=== PATIENT | male | born 1960 | race Caucasian/White ===

== ENCOUNTER → 2024-07-29 | Outpatient (CLI) | payer MEDICAID, SELFPAY | END | disposition home or self-care (01) | LOC: SMRI 15:38 | PROVIDERS: PCP Nurse Practitioner Family; Referring Provider Nurse Practitioner Family; Visit Provider Nurse Practitioner Family | DX: Z53.29 Procedure and treatment not carried out because of patient's decision for other reasons (principal) ==

== ENCOUNTER → 2024-08-08 | Outpatient (CLI) | payer MEDICAID, SELFPAY ==
--- NOTE | 2024-08-08 16:26 | XR_ITS ---
Examination: Ultrasound soft tissue extremity left arm TECHNIQUE: Multiple high resolution grayscale sonographic images soft tissue posterior left midarm, elbow Exam date and time: August 08, 2024 1664 hours INDICATIONS: Elbow pain 4 months FINDINGS: Soft tissue mass posterior mid arm elbow measuring 8 x 3.4 cm with hypervascularity IMPRESSION: Large soft tissue mass left posterior mid arm and elbow, differential would include soft tissue tumor Recommend MRI elbow left forearm pre and post contrast follow-up
== END | disposition home or self-care (01) ==
LOC: CDIM 16:22
PROVIDERS: Referring Provider Nurse Practitioner Family; Visit Provider Nurse Practitioner Family
DX: R22.32 Localized swelling, mass and lump, left upper limb (principal)
CPT/HCPCS: 76882

== ENCOUNTER → 2024-09-25 | Outpatient (CLI) | payer MEDICAID, SELFPAY ==
[2024-09-23 10:20] VITALS: BMI 19.5
[2024-09-25 07:30] LABS: Basophils # (Auto) 0.1 Thou/mm3 (0.0-0.2); Basophils % (Auto) 1 % (0-2.5); Eosinophils # (Auto) 0.4 Thou/mm3 (0.0-0.5); Eosinophils % (Auto) 5 % (0-10); Hemoglobin 14.9 g/dL (13.5-16.0); Immature Granulocytes % (Auto) 0 % (0-0); Immature Granulocytes Auto 0.01 Thou/mm3 (0.00-0.00); Lymphocytes # (Auto) 1.8 Thou/mm3 (1.0-4.8); Lymphocytes % (Auto) 21 % (10-50); Mean Corpuscular HGB Conc 34.7 g/dl (31.0-37.0); Mean Corpuscular Volume 89 fL (80-100); Monocytes # (Auto) 0.9 Thou/mm3 (0.0-0.8); Monocytes % (Auto) 10 % (0-12); Neutrophils # (Auto) 5.4 Thou/mm3 (1.8-7.7); Neutrophils % (Auto) 64 % (37-80); Nucleated Red Blood Cell % 0 /100 WBC (0); Platelet Count 274 Thou/mm3 (140-440); RDW Standard Deviation 43.3 fL (35.1-43.9); Red Blood Count 4.81 Miln/mm3 (4.50-5.90); White Blood Count 8.5 Thou/mm3 (3.8-10.6)
[2024-09-25 07:36] LABS: Blood Urea Nitrogen 10 mg/dL (9-23); Creatinine (Component) 0.8 mg/dL (0.6-1.3); eGFR > 60 See Note
[2024-09-25 07:55] LABS: INR 0.9 (0.9-1.3); Partial Thromboplastin Time 30.4 Seconds (22.0-36.0); Prothrombin Time 10.4 Seconds (9.0-12.2)
[2024-09-25 08:38] VITALS: BP 151/82; PULSE 93; RESP 20; TEMP 37.1; O2SAT 95
--- NOTE | 2024-09-25 10:45 | PC.NURSE ---
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 at 1030, patient waiting for ct department to be available for procedure, patient stated he wants to go home, Charge nurse Natalya notified and talked to patient and rescheduled patient for another date. IV taken out, patient changed to own clothe and walked out with caregiver Shannan.
== END | disposition home or self-care (01) ==
PROVIDERS: Radiology Diagnostic Radiology; PCP Nurse Practitioner Family; Referring Provider Nurse Practitioner Family; Visit Provider Nurse Practitioner Family
DX: Z53.29 Procedure and treatment not carried out because of patient's decision for other reasons (principal); Z01.812 Encounter for preprocedural laboratory examination
CPT/HCPCS: 36415; 82565; 84520; 85025; 85610; 85730

== ENCOUNTER 2024-10-15 13:55 | Inpatient (IN) | payer MEDICARE, MEDICAID, SELFPAY ==
[2024-10-14 18:02] LABS: Basophils # (Auto) 0.1 Thou/mm3 (0.0-0.2); Basophils % (Auto) 1 % (0-2.5); Eosinophils # (Auto) 0.2 Thou/mm3 (0.0-0.5); Eosinophils % (Auto) 2 % (0-10); Hematocrit 41.7 % (41.0-53.0); Hemoglobin 13.9 g/dL (13.5-16.0); Immature Granulocytes % (Auto) 0 % (0-0); Immature Granulocytes Auto 0.03 Thou/mm3 (0.00-0.00); Lymphocytes # (Auto) 1.5 Thou/mm3 (1.0-4.8); Lymphocytes % (Auto) 15 % (10-50); Mean Corpuscular HGB Conc 33.3 g/dl (31.0-37.0); Mean Corpuscular Volume 90 fL (80-100); Monocytes # (Auto) 0.8 Thou/mm3 (0.0-0.8); Monocytes % (Auto) 8 % (0-12); Neutrophils # (Auto) 7.7 Thou/mm3 (1.8-7.7); Neutrophils % (Auto) 74 % (37-80); Nucleated Red Blood Cell % 0 /100 WBC (0); Platelet Count 505 Thou/mm3 (140-440); RDW Standard Deviation 43.8 fL (35.1-43.9); Red Blood Count 4.64 Miln/mm3 (4.50-5.90); White Blood Count 10.4 Thou/mm3 (3.8-10.6)
[2024-10-14 18:09] LABS: Partial Thromboplastin Time 30.4 Seconds (22.0-36.0); Prothrombin Time 10.9 Seconds (9.0-12.2)
[2024-10-14 18:22] LABS: Blood Urea Nitrogen 13 mg/dL (9-23); Creatinine (Component) 0.7 mg/dL (0.6-1.3); eGFR > 60 See Note
[2024-10-15] VITALS (20 sets, daily range): BP systolic 105–151; BP diastolic 55–102; PULSE 60–106; RESP 10–95; TEMP 36.6–37.2; O2SAT 90–98; BMI 18.9
--- NOTE | 2024-10-15 | XR_ITS ---
Examination: IR fluoroscopically guided right chest tube insertion AP chest 2 views Fluoroscopy Exam date and time: October 15, 2024 1302 hours INDICATIONS: Pneumothorax post biopsy of pulmonary mass in the right upper lobe today TECHNIQUE AND FINDINGS: Informed consent provided. Timeout performed. Skin prepped over the lateral lower chest and sterile drape applied hand hygiene 1% lidocaine administered for local anesthesia. Utilizing fluoroscopic guidance 9 Romansh Heimlich chest tube placed in the right hemithorax Fluoroscopy 0.8 minute radiation dose 2.10 milligray 2 spot fluoroscopic chest films IMPRESSION: Successful fluoroscopically guided right chest tube insertion
--- NOTE | 2024-10-15 09:00 | XR_ITS ---
Examination: CT-guided percutaneous biopsy pulmonary mass right upper lobe CT chest without intravenous contrast INDICATIONS: Spiculated pulmonary mass 25 mm right upper lobe on CT chest July 18, 2024, smoking history 30 years Date and time of procedure: October 15, 2024 0959 hours Informed consent provided. A timeout was completed verifying correct patient, procedure, site and positioning. Technique: Axial 3 mm sections were obtained for localization of the pulmonary mass right upper lobe Appropriate area is marked. The patient's site was prepped and draped in sterile fashion Maximal sterile barrier technique utilized, including hand hygiene Local anesthesia was obtained with 1% lidocaine. Low dose protocols were performed. One or more of the following dose reduction techniques were used; automated exposure control, adjustment of the mA and/or KV according to patient size, use of iterative reconstruction technique. Utilizing CT fluoroscopic guidance 3 core biopsies obtained of the pulmonary mass right upper lobe Patient appears in stable condition during this procedure. At completion of the procedure, the patient is in satisfactory condition. Estimated blood loss 0 cc Complete pathology report to follow. Impression: Successful CT-guided percutaneous biopsy pulmonary mass right upper lobe
[2024-10-15] MEDS: fentaNYL CIT INJ 50 mCg/ML AMP 2ML 75 MCG IVP (10:15)
--- NOTE | 2024-10-15 10:30 | XR_ITS ---
Examination: AP chest single view TECHNIQUE: AP portable chest upright single view INDICATIONS: Post lung biopsy today. FINDINGS: Lateral inferior right pneumothorax, estimated 30% No shift of the heart or mediastinum IMPRESSION: 30% right pneumothorax
--- NOTE | 2024-10-15 11:30 | XR_ITS ---
Examination: AP chest single view Technique one AP upright portable chest single view INDICATIONS: Post lung biopsy today. FINDINGS: Right lateral inferior pneumothorax, estimated 35% Pulmonary mass right upper lobe again noted IMPRESSION: Right pneumothorax estimated 35% PLAN: Continue follow-up x-rays
--- NOTE | 2024-10-15 12:30 | XR_ITS ---
Examination: AP chest single view Technique one AP portable upright chest single view Exam date and time: October 15, 2024 1236 hours INDICATIONS: Post lung biopsy today. FINDINGS: 40% right pneumothorax Pulmonary mass right upper lobe again noted IMPRESSION: 40% right pneumothorax
[2024-10-15] MEDS: fentaNYL CIT INJ 50 mCg/ML AMP 2ML 150 MCG IVP (13:10)
[2024-10-15] MEDS: LIDOCAINE INJ PF 1% 30 ML VIAL 10 ML EPID (13:12)
--- NOTE | 2024-10-15 15:00 | XR_ITS ---
Examination: AP chest single view Technique one AP portable upright chest single view Exam date and time: October 15, 2024 1807 hrs. Indications: Pneumothorax today on the right post lung biopsy, post chest tube placement Findings: Chest tube satisfactory position Full expansion right lung Pulmonary mass is again depicted Impression: Right chest tube satisfactory position with full expansion right lung
--- NOTE | 2024-10-15 15:19 | PC.NURSE ---
Report given to NNAMDI Wisdom waiting on registration to bring me a packet before i can take pateint to his new room
--- NOTE | 2024-10-15 15:55 | ESHP_ITS ---
Documentation for date of: 10/15/24 [facility] History of Present Illness History of present illness: The patient is a 63-year-old male with a past medical history of hypertension and solitary pulmonary nodule who presented to [facility] on 10/15/2024 as an outpatient for lung biopsy. Essentially, the patient about 3 months ago started having some pain in his left arm as well as firm swelling. As he works as a visitor services coordinator, he initially thought it was some swelling from a bite or sting but as the pain worsened, he presented to his PCP and had an x-ray done which showed some suspicion for metastasis. Consequently, in the last 3 months he has done multiple imaging including having to go to [facility] as well as a CAT scan done in July which showed a 25 mm spiculated pulmonary mass in the right upper lobe most consistent with lung carcinoma. Today, the patient presented here for lung biopsy which was done by IR. Shortly after the procedure was done, the patient started to complain of severe pain in the right side of the chest just above the biopsy site. A chest x-ray was done which showed 30% right pneumothorax initially which continued to build to 40%. The patient continues to have severe pain in his right chest and a chest tube was inserted. He has been admitted for further management. Recent labs prior to procedure: WBC 10.4 Hgb 13.9 PLT 505 with normal BUN and creatinine. PMHx-hypertension, solitary pulmonary nodule PSHx-nil Social history-smokes tobacco and drinks alcohol Home meds-Cayuga 10 mg, gabapentin, morphine, lisinopril Review of Systems Review of Systems Narrative Review of Systems: GENERAL: Denies fevers/chills or diaphoresis. HEENT: Denies headache or visual/hearing changes. Denies nasal discharge. NEURO: Denies unusual weakness or difficulty speaking. CARDIO: Denies chest pain or palpitations. PULM: Pain on the right side of the chest GI: Denies abdominal pain, N/V/C/D/reflux/gas, bright red blood per rectum or melena. Reports having BMs. URO: Denies burning/itching/pain/urinary changes. MSK/EXT/SKIN:Pain in the left arm PSYCH: Cooperative, pleasant mood & affect. 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 Eyes open, symmetrical, & clear CARDIO: No chest pain on palpation. Heart RRR, no obvious murmurs PULM: No noted coughing/dyspnea. Pain to palpation in the right side of the chest. Chest tube in-situ GI: Abdomen soft, nondistended, no pain on palpation. 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 SKIN/MSK/EXT: Firm swelling in the left arm, tender to touch Results: Labs 10/16/24 05:18 10/16/24 05:18 Labs: Short CBC 10/14/24 Range/Units 17:18 WBC 10.4 (3.8-10.6) Thou/mm3 Hgb 13.9 (13.5-16.0) g/dL Hct 41.7 (41.0-53.0) % Plt Count 505 H D (140-440) Thou/mm3 BMP 10/14/24 17:18 BUN 13 Creatinine 0.7 Quality Measures Quality Measures VTE prophylaxis Medications Home Medications and Allergies Home Medications ?Medication ?Instructions ?Recorded ?Confirmed ?Type albuterol 90 mcg/actuation aerosol 90 mcg inhalation D AILY 09/25/24 10/15/24 History inhaler gabapentin 300 mg tablet 300 mg PO TID 09/25/2410/15 History hydrocodone 10 mg-acetaminophen 1 tab PO Q6H PRN Pain 09/25/24 10/15/24 History 325 mg tablet lisinopril 20 mg tablet 20 mg PO QDAY 09/25/2410/15 History morphine 15 mg tablet,extended 15 mg PO Q12H 09/25/24 10/15/24 History release nitroglycerin 0.4 mg sublingual 0.4 mg buccal Q5MIN NH N Chest Pain 09/25/24 10/15/24 History tablet aspirin 81 mg tablet,delayed 81 mg PO QDAY 10/15/24 History release (Adult Low Dose Aspirin) Held on 10/15/24. Instructions: Resume on 10/17/24. Per Ronnie Layton. Hold until 10/17/24 Allergies Allergy/AdvReac Type Severity Reaction Status Date / Time No Known Allergies Allergy Verified 09/23/24 10:18 Visit Medications Acetaminophen (Acetaminophen 325 Mg Tablet) 650 mg PO Q6H PRN PRN Reason: Pain 1-3 or Fever >100.1 Stop: 11/14/24 13:54 Hydrocodone Bitart/Acetaminophen (Hydrocodone/Apap 10/325 Tab) 1 tab PO Q6HR PRN PRN Reason: PAIN SCALE 4-6 (Moderate Stop: 10/20/24 13:54 Gabapentin (Gabapentin 300 Mg Capsule) 300 mg PO TID [facility] Stop: 11/14/24 21:59 Heparin Sodium (Porcine) (Heparin Sod Inj 5000 Unit/Ml Vial) 5,000 unit SC Q12HR RAJANI Stop: 10/29/24 20:59 Sodium Chloride (Ns) 500 mls @ 20 mls/hr IV .Q24H RAJANI Stop: 11/14/24 09:14 Last Admin: 10/15/24 10:12 Dose: Not Given Morphine Sulfate (Morphine Sulf 15 Mg Tabcr) 15 mg PO Q12H RAJANI; Protocol Stop: 10/20/24 19:59 Morphine Sulfate (Morphine Sulf Inj 10 Mg/Ml Vial) 2 mg IVP Q4HR PRN PRN Reason: BREAKTHROUGH PAIN (SEVERE) Stop: 10/20/24 14:34 Ondansetron HCl (Ondansetron Inj 2 Mg/Ml Inj 2 Ml) 4 mg IV Q6H PRN; Protocol PRN Reason: NAUSEA OR VOMITING Stop: 11/14/24 13:54 Sennosides (Senna Tablet) 1 tab PO QDAY RAJANI; Protocol Stop: 11/15/24 08:59 Discontinued Medications Fentanyl Citrate (Fentanyl Cit Inj 50 Mcg/Ml Amp 2ml) 75 mcg IVP X1 ONE Stop: 10/15/24 10:13 Last Admin: 10/15/24 10:15 Dose: 75 mcg Fentanyl Citrate (Fentanyl Cit Inj 50 Mcg/Ml Amp 2ml) 150 mcg IVP X1 ONE Stop: 10/15/24 13:11 Last Admin: 10/15/24 13:10 Dose: 150 mcg Lidocaine HCl (Lidocaine Inj Pf 1% 30 Ml Vial) 10 ml EPID X1 ONE Stop: 10/15/24 13:11 Last Admin: 10/15/24 13:12 Dose: 10 ml Morphine Sulfate (Morphine Sulf Inj 10 Mg/Ml Vial) 4 mg IVP X1 ONE Stop: 10/15/24 14:11 Assessment & Plan Assessment Summary: The patient is a 63-year-old male with a past medical history of hypertension and solitary pulmonary nodule who presented for an outpatient lung biopsy and developed a pneumothorax. # Acute hypoxic respiratory failure #Right-sided pneumothorax #s/p lung biopsy #Solitary pulmonary nodule The patient first developed pain and swelling in his left arm about 3 months ago after which she had x-ray done that showed some suspicion. He had multiple imaging including a CAT scan which was done and showed a 25 mm spiculated pulmonary mass in the right upper lobe most consistent with lung carcinoma. Today, the patient presented for lung biopsy which was done by IR and subsequently developed a right-sided pneumothorax. A chest tube was inserted and the patient is admitted for further management. Plan: -Admit to telemetry -Optimize pain management-Cayuga, morphine and breakthrough pain -Continue to monitor vital signs #History of hypertension Patient has a history of hypertension and is on lisinopril 20 mg daily. Blood pressure on admission currently normal. Plan: -Hold antihypertensives for now Health maintenance: Dispo: Tele Diet: Cardiac DVT: Lovenox Cuevas: None Lines: Peripheral PT: Not ordered Code: Full Case was discussed with Dr Day PGY-2 and attending physician, Dr Elio Burr MD PGY-1 Disclaimer: This note was dictated by speech recognition. Minor errors in clinical specialist vascular may be present due to voice recognition software. Attending Provider Attestation/Addendum I reviewed labs, imaging, EKG, home medications and prior available records. Face to face evaluation was performed by me. I have personally examined the patient and discussed assessment and plan with the IM team. I reviewed the resident note and agree with the plan with exceptions as below. Lung mass status postbiopsy Acute hypoxic respiratory failure Acute pneumothorax of right lung Right chest pain at rest Chronic pain on oral opiates Tobacco use Status post chest tube insertion Continue oxygen as needed Monitor respiratory status Repeat chest x-ray in the next a.m. Management of pain as needed: Resume home p.o. morphine. Add IV morphine as needed for breakthrough pain Counseled the patient regarding the importance of smoking cessation
--- NOTE | 2024-10-15 16:08 | PC.NURSE ---
informed pt of his diet being cardiac. pt became agitated stating he is healthy and eats whatever he likes. explained to pt this was a doctor's order but if he would like this nurse would call the md and he could talk to them himself pt stated I will eat what I want if not I will rip these tubes out explained to this nurse had already agreed to call md so he could talk to them. pt stating I don't need to talk to anyone tell him what I said .
--- NOTE | 2024-10-15 16:08 | PC.NURSE ---
called dr. cano to explain pt diet situation. to change diet order
[2024-10-15] MEDS: NICOTINE PATCH 21 MG/24 HR PATCH.TD24 TOP (17:31)
--- NOTE | 2024-10-15 17:50 | PC.NURSE ---
pt refusing to answered admission questions pt stating this has nothing to do with my lung , attempted to explain to pt this standard questions asked to all admissions in order to cover all needs. pt refusing to answer questions Myriam never been sick in my life I don't want to answer no questions . was allowed to do a head to toe assessment found 2 bottles of prescription labeled medication. per pt it's for my cancer treatment if I don't take my medications it will turn ugly, I need my medications scheduled at 8 and 2 . explained to pt that those medications were already ordered and would be provided to him. explained also pt medications were either sent home or sent to pharmacy to a safe. pt states I am not a drug addict, I am 63 years old I will take my own medications and they will stay next to me . explained to pt would notify md of pt taking his own medications.
--- NOTE | 2024-10-15 17:56 | PC.NURSE ---
made aware pt has 2 prescription bottles one of them labeled as gabapentin and another labeled has lortab. pt is refusing to have medications taken to pharmacy for safety purposes even after informing him we have his home medications reconciled and md restarted those medications.
[2024-10-15] MEDS: Morphine Sulf 15 MG TABCR PO (19:44)
[2024-10-15] MEDS: HYDROcodone/APAP 10/325 TAB PO (19:48)
[2024-10-15] MEDS: GABAPENTIN 300 MG CAPSULE PO (21:02)
[2024-10-16] VITALS: BP 131/88; PULSE 81; PULSE 84; RESP 21; TEMP 36.2; O2SAT 96
[2024-10-16] MEDS: HYDROcodone/APAP 10/325 TAB PO ×3 (01:45→14:09)
[2024-10-16 04:00] VITALS: BP 121/73; PULSE 82; PULSE 83; RESP 18; TEMP 36.6; O2SAT 94
[2024-10-16 05:39] LABS: Basophils # (Auto) 0.1 Thou/mm3 (0.0-0.2); Basophils % (Auto) 1 % (0-2.5); Eosinophils # (Auto) 0.3 Thou/mm3 (0.0-0.5); Eosinophils % (Auto) 3 % (0-10); Hematocrit 37.5 % (41.0-53.0); Hemoglobin 12.8 g/dL (13.5-16.0); Immature Granulocytes % (Auto) 1 % (0-0); Immature Granulocytes Auto 0.04 Thou/mm3 (0.00-0.00); Lymphocytes # (Auto) 1.9 Thou/mm3 (1.0-4.8); Lymphocytes % (Auto) 23 % (10-50); Mean Corpuscular HGB Conc 34.1 g/dl (31.0-37.0); Mean Corpuscular Volume 88 fL (80-100); Monocytes # (Auto) 0.8 Thou/mm3 (0.0-0.8); Monocytes % (Auto) 9 % (0-12); Neutrophils # (Auto) 5.3 Thou/mm3 (1.8-7.7); Neutrophils % (Auto) 63 % (37-80); Nucleated Red Blood Cell % 0 /100 WBC (0); Platelet Count 413 Thou/mm3 (140-440); RDW Standard Deviation 43.2 fL (35.1-43.9); Red Blood Count 4.26 Miln/mm3 (4.50-5.90); White Blood Count 8.5 Thou/mm3 (3.8-10.6)
[2024-10-16] MEDS: GABAPENTIN 300 MG CAPSULE PO ×2 (06:00→13:10)
[2024-10-16 06:15] LABS: Alanine Aminotransferase 14 U/L (10-49); Albumin, Serum 3.8 gm/dL (3.4-4.8); Albumin/Globulin Ratio 1.3 (1.2-2.2); Alkaline Phosphatase 89 U/L (46-116); Anion Gap 4 (7-16); Aspartate Amino Transferase 13 U/L (0-34); BUN/Creatinine Ratio 16 Ratio (12-20); Bilirubin,Total 0.2 mg/dL (0.3-1.2); Blood Urea Nitrogen 11 mg/dL (9-23); Calcium 9.6 mg/dL (8.3-10.6); Calcium (Corrected) 9.8 mg/dL (8.5-10.1); Carbon Dioxide 27.1 mMol/L (20.0-31.0); Chloride 103 mMol/L (98-107); Creatinine (Component) 0.7 mg/dL (0.6-1.3); Estimated Creatinine Clearance 82.8 mL/min (>60); Glucose 102 mg/dL (74-106); Magnesium 1.8 mg/dL (1.6-2.6); Osmolality,Calculated 267 (275-295); Phosphorous 3.9 mg/dL (2.4-5.1); Potassium 4.3 mMol/L (3.4-5.1); Sodium 134 mMol/L (136-145); Thyroid Stimulating Hormone 0.76 uIU/mL (0.55-4.78); Total Protein 6.8 gm/dL (5.7-8.2); eGFR > 60 See Note
[2024-10-16 07:30] VITALS: PULSE 89; RESP 19; RESP 92
[2024-10-16 08:00] VITALS: BP 126/80; PULSE 100; PULSE 97; RESP 18; TEMP 37.3; O2SAT 92
[2024-10-16] MEDS: Morphine Sulf 15 MG TABCR PO (08:02)
[2024-10-16] MEDS: NICOTINE PATCH 21 MG/24 HR PATCH.TD24 TOP (08:03)
[2024-10-16] MEDS: SENNA TABLET 1 TAB PO (08:03)
--- NOTE | 2024-10-16 08:41 | XR_ITS ---
Examination: AP chest single view Technique one AP portable semiupright chest single view Exam date and time: October 16, 2024 0855 hours Comparison October 15, 2024 INDICATIONS: History right pneumothorax especially post lung biopsy, post chest tube placement FINDINGS: Chest tube on the right satisfactory position Full expansion right lung Pulmonary masses again noted IMPRESSION: Right chest tube satisfactory position with full expansion right lung
[2024-10-16 10:46] VITALS: BMI 19.0
[2024-10-16 12:00] VITALS: BP 99/71; PULSE 90; PULSE 98; RESP 18; TEMP 36.9; O2SAT 92
--- NOTE | 2024-10-16 12:30 | XR_ITS ---
Examination: AP chest single view TECHNIQUE: AP portable upright chest single view Exam date and time: October 16, 2024 1229 hours INDICATIONS: History right pneumothorax post right chest tube placement, chest tube clamped today at 12:30 PM FINDINGS: Full expansion right lung Right chest tube satisfactory position IMPRESSION: Full expansion right lung
[2024-10-16] MEDS: MORPHINE SULF INJ 10 MG/ML VIAL 2 MG IVP (13:09)
--- NOTE | 2024-10-16 15:07 | ESDS_ITS ---
Planned Discharge Date 10/16/24 DS: Providers Provider Date of admission: 10/15/24 13:55 Primary care physician: DE Fernandez Admitting Provider: Michel Burr MD Attending Provider on Admission: Stephon Ballard MD Attending Provider on DC: Michel Burr MD Discharging Provider: Michel Burr MD DS: Diagnosis Problem List Completed Was Problem List Reviewed/Reconciled?: Yes Hospital Course Hospital Course Hospital course: The patient is a 63-year-old male with a past medical history of hypertension and solitary pulmonary nodule who presented on 10/15/2024 as an outpatient for lung biopsy. He had initially done a CAT scan in July which showed a 25 mm spiculated pulmonary mass in the right upper lobe, most consistent with lung carcinoma. The biopsy was done as an IR procedure but shortly after, the patient was co mplaining of severe chest pain. He was given fentanyl, however chest pain persisted and a chest x-ray was done which showed enlarging pneumothorax. Patient had a chest tube inserted and was admitted for further management. Today, the patient reports that he has no pain anymore, vitals are stable and repeat chest x-ray was done which showed resolution of the pneumothorax with full expansion of the right lung. After clamping chest tube and repeat chest x-ray, the tube was removed. The patient continues to remain clinically and hemodynamically stable and is cleared for discharge. He will follow-up with his PCP within 1 week of discharge for pathology results. #Acute hypoxic respiratory failure #Right-sided pneumothorax #s/p lung biopsy #Solitary pulmonary nodule, possible lung carcinoma #History of hypertension Case was discussed with Dr Rachel PGY-2 and attending physician, Dr Elio Burr MD PGY-1 Disclaimer: This note was dictated by speech recognition. Minor errors in transcription typist may be present due to voice recognition software. Time Spent with Patient Time attestation: Total time spent providing and/or coordinating discharge services: Exam Vital Signs Temp Pulse Resp BP Pulse Ox O2 Del Method O2 Flow Rate 98.4 F 98 18 99/71 92 L Room Air 4 10/16/24 12:00 10/16/24 12:00 10/16/24 12:00 10/16/24 12:00 10/16/24 12:00 10/16/24 12:00 10/16/24 04:00 Discharge Plan Plan Patient Disposition: HOME (Self Care) Prescriptions/Referrals Prescriptions/Med Rec: Continued nitroglycerin 0.4 mg Tablet, Sublingual 0.4 mg BUCCAL Q5MIN PRN (Reason: Chest Pain) hydrocodone-acetaminophen 10-325 mg Tablet 1 tab PO Q6H PRN (Reason: Pain) morphine 15 mg Tablet Extended Release 15 mg PO Q12H albuterol 90 mcg/actuation Aerosol 90 mcg INHALATION DAILY gabapentin 300 mg Tablet 300 mg PO TID lisinopril 20 mg Tablet 20 mg PO QDAY Held aspirin [Adult Low Dose Aspirin] 81 mg tablet,delayed release (DR/EC) 81 mg PO QDAY Hold Instructions: Resume on 10/17/24. Per Ronnie Layton. Hold until 10/17/24 Referrals: Argelia Cesar FNP [Primary Care Provider] - Ronnie Harry MD [Physician] - Patient/Caregiver Discharge Instructions Other Discharge Activity Instructions:: Please call to schedule a follow up appointment with your primary care doctor 1-2 weeks after discharge so he/she can make further recommendations about your overall health condition Continue to take your medicine as directed by the doctor. If there is no changes, continue to take medication at your usual time. Please refer to your discharge insructions. Do NOT perform any strenuous activity in the next 3 days. Do NOT lift anything heavier than 5 pound in the next 3 days. Bed rest is required for at least 24-48 hours to prevent complications. After three days, gradually increase the level of activity. DO NOT drive or operate any motor vehicle, heavy equipment or machinery in the next 24 hours. DO NOT perform any activity that requires you to be fully alert in the next 24 hour. DO NOT sign any documentation in the next 24 hours that requires a full understanding of what you are signing for. Keep your dressing clean, dry, and intact; it can be removed in 24-48 hours after your discharge from the hospital. Do not shower today. We recommend not to shower in the next 24 hours post- discharge. Preferably, take a sponge bath to help prevent your dressing from getting wet/soiled. After removing your dressing, you can gently clean your surgical site with soap and water and pad dry it. DO NOT rub site to prevent complication such as bleeding. DO NOT apply any lotions, creams, or powders on the surgical site until your skin completely heels (5 days or more). Should you develop signs and symptoms of infection on your surgical site such as but not limited to redness, pain, swelling, change in temperature on or around the surgical site; call your primary care doctor immediately and let him/her know. Should you experience any complications such as but not limited to chest pain, shortness of breath, excruciating pain, or bleeding that does not stop; GO TO THE NEAREST EMERGENCY ROOM IMMEDIATELY. Should you have any other questions or concerns on regards today?s procedure; feel free to contact us to [email or web address] Please call to schedule a follow up appointment with your primary care doctor 1- 2 weeks after discharge so he/she can make further recommendations about your overall health condition Eat a well-balanced diet with plenty of fresh fruits, vegetables and whole grains if not contraindicated by your primary care provider. Choose water to hydrate yourself over any other type of drinks. Talk to your primary doctor for further advice for a diet that fits your nutritional body requirements and for an adequate exercise program to keep and improve your overall health condition. ALWAYS FOLLOW/CONSIDER YOUR PRIMARY CARE DOCTOR'S MEDICAL ADVICE BEFORE MAKING ANY CHANGES TO YOUR DIET OR LEVELS OF ACTIVITY Should you have any other questions or concerns on regards today?s procedure; feel free to contact us to [email or web address] Education Materials: Fentanyl injection, CT-Guided Lung Biopsy, Preventing Surgical Site Infections, [facility] [place] [facility] [place]- [place] Print Language: [place] Activity Restrictions/Additional Instructions: Please call to schedule a follow up appointment with your primary care doctor 1- 2 weeks after discharge so he/she can make further recommendations about your overall health condition Continue to take your medicine as directed by the doctor. If there is no changes, continue to take medication at your usual time. Please refer to your discharge insructions. Do NOT perform any strenuous activity in the next 3 days. Do NOT lift anything heavier than 5 pound in the next 3 days. Bed rest is required for at least 24-48 hours to prevent complications. After three days, gradually increase the level of activity. DO NOT drive or operate any motor vehicle, heavy equipment or machinery in the next 24 hours. DO NOT perform any activity that requires you to be fully alert in the next 24 hour. DO NOT sign any documentation in the next 24 hours that requires a full understanding of what you are signing for. Keep your dressing clean, dry, and intact; it can be removed in 24-48 hours after your discharge from the hospital. Do not shower today. We recommend not to shower in the next 24 hours post- discharge. Preferably, take a sponge bath to help prevent your dressing from getting wet/soiled. After removing your dressing, you can gently clean your surgical site with soap and water and pad dry it. DO NOT rub site to prevent complication such as bleeding. DO NOT apply any lotions, creams, or powders on the surgical site until your skin completely heels (5 days or more). Should you develop signs and symptoms of infection on your surgical site such as but not limited to redness, pain, swelling, change in temperature on or around the surgical site; call your primary care doctor immediately and let him/her know. Should you experience any complications such as but not limited to chest pain, shortness of breath, excruciating pain, or bleeding that does not stop; GO TO THE NEAREST EMERGENCY ROOM IMMEDIATELY. Should you have any other questions or concerns on regards today?s procedure; feel free to contact us to [employer] Please call to schedule a follow up appointment with your primary care doctor 1- 2 weeks after discharge so he/she can make further recommendations about your overall health condition Eat a well-balanced diet with plenty of fresh fruits, vegetables and whole gr ains if not contraindicated by your primary care provider. Choose water to hydrate yourself over any other type of drinks. Talk to your primary doctor for further advice for a diet that fits your nutritional body requirements and for an adequate exercise program to keep and improve your overall health condition. ALWAYS FOLLOW/CONSIDER YOUR PRIMARY CARE DOCTOR'S MEDICAL ADVICE BEFORE MAKING ANY CHANGES TO YOUR DIET OR LEVELS OF ACTIVITY Should you have any other questions or concerns on regards today?s procedure; feel free to contact us to [employer] Stand Alone Forms: [employer] Info., Patient Portal Info Letter Discharge Order Discharge Orders: Discharge (Routine); Ordered 10/16/24 Ordered By: Michel Burr Quality Discharge Quality Measures VTE prophylaxis Attestestation Attestation I reviewed labs, imaging, EKG, home medications and prior available records. Face to face evaluation was performed by me. I have personally examined the patient and discussed assessment and plan with the IM team. I reviewed the resident note and agree with the plan with exceptions as below. Lung mass status postbiopsy Acute hypoxic respiratory failure Acute pneumothorax of right lung Right chest pain at rest Chronic pain on oral opiates Tobacco use Status post chest tube insertion. Removed the chest tube. Repeat chest x-ray post removal: Stable He is on room air Monitor respiratory status: Stable Repeat chest x-ray this a.m.: Resolution of the pneumothorax Management of pain as needed: Resume home p.o. morphine. Pain improved. Counseled the patient regarding the importance of smoking cessation Time spent is 40 minutes. More than 50% of the time was spent on patient educat ion and coordination of care.
[2024-10-16 16:00] VITALS: BP 137/89; PULSE 103; PULSE 99; RESP 18; TEMP 37.2; O2SAT 93
--- NOTE | 2024-10-16 16:00 | XR_ITS ---
Examination: AP chest single view Technique one AP portable upright chest single view Exam date and time: October 16, 2024 1605 hours INDICATIONS: Status post removal right hemithorax chest tube FINDINGS: Right chest tube no longer identified Full expansion right lung Otherwise no change IMPRESSION: Full expansion right lung post removal right chest tube
== END 2024-10-16 16:41 | disposition home or self-care (01) | DRG 199 ==
LOC: S3NX 15:15
PROVIDERS: Radiology Diagnostic Radiology; PCP Nurse Practitioner Family; Referring Provider Nurse Practitioner Family; Visit Provider Student in an Organized Health Care Education/Training Program
DX: J95.811 Postprocedural pneumothorax (principal); J96.01 Acute respiratory failure with hypoxia; C34.11 Malignant neoplasm of upper lobe, right bronchus or lung; I10 Essential (primary) hypertension; G89.29 Other chronic pain; Z79.899 Other long term (current) drug therapy; Z79.891 Long term (current) use of opiate analgesic; Z72.0 Tobacco use; Y84.8 Other medical procedures as the cause of abnormal reaction of the patient, or of later complication, without mention of misadventure at the time of the procedure; Y92.238 Other place in hospital as the place of occurrence of the external cause
CPT/HCPCS: 36415; 71045; 77012; 80053; 82565; 83735; 84100; 84443; 84520; 85025; 85610; 85730; 94762; J1650; J2270; J3010; J3490; A9270

== ENCOUNTER → 2024-11-13 | Outpatient (CLI) | payer MEDICARE, MEDICAID, SELFPAY ==
--- NOTE | 2024-11-13 14:00 | XR_ITS ---
Examination: Bone scan whole body, radioisotope Date and time of exam: November 13, 2024 1435 hrs. Indications: Diagnosis malignant neoplasm unspecified part left bronchus or lung, staging Technique: Study has been performed with intravenous administration of 23.5 mci 99M technetium MDP. Anterior, posterior whole body images are obtained. Images have been obtained including the lower extremities. Findings: Increased isotope accumulation L1 on the right Increased uptake in the region of the thyroid glands Impression: Positive bone scan but nonspecific Recommend 5 view lumbar spine series follow-up
== END | disposition home or self-care (01) ==
PROVIDERS: Referring Provider Specialist; Visit Provider Specialist
DX: R93.7 Abnormal findings on diagnostic imaging of other parts of musculoskeletal system (principal); C34.92 Malignant neoplasm of unspecified part of left bronchus or lung
CPT/HCPCS: 78306; A9503